=== PATIENT | male | born 1965 | race Caucasian/White ===

== ENCOUNTER 2025-01-24 06:34 | Day surgery (SDC) | payer OTHER, MEDICARE ==
[~2025-01-24] VITALS: Ht 175.3 cm; Wt 77.2 kg
[2025-01-24] MEDS ORDERED: RINGERS SOLUTION,LACTATED 1,000 ML IV ONE (07:20)
[2025-01-24 07:23] LABS: PLATELET COUNT (AUTO) 192 K/uL (150-450); RED BLOOD CELL COUNT(AUTO) 4.49 MIL/uL (4.50-5.90); RED CELL DISTRIBUTION WIDTH 14.3 % (11.5-14.5); WHITE BLOOD COUNT (AUTO) 4.7 K/uL (4.5-11.0)
[2025-01-24 07:36] LABS: CALCIUM, TOTAL 8.2 mg/dL (8.8-10.5); CREATININE 0.79 mg/dL (0.60-1.30); GLOMERULAR FILTR. RATE CALC > 60 mL/min (>60); GLUCOSE,RANDOM 96 mg/dL (70-110); SODIUM SERUM 138 mmol/L (136-145); UREA NITROGEN, BLOOD 10 mg/dL (7-18)
[2025-01-24 07:41] LABS: ASPARTATE AMINOTRANSFERASE 12 U/L (15-37); TOTAL PROTEIN, SERUM 7.3 g/dL (6.4-8.2)
[2025-01-24] MEDS ORDERED: AMPICILLIN SODIUM 2 GM/NS 100 ML IV ONE (08:11)
[2025-01-24] MEDS ORDERED: SUGAMMADEX SODIUM 200 MG/2 ML VIAL IVP ONE (08:40)
[2025-01-24] MEDS ORDERED: PROPOFOL 1% 20 ML VIAL IVP ONE (08:40)
[2025-01-24] MEDS ORDERED: GLYCOPYRROLATE 0.2 MG/ML VIAL ONE (08:40)
[2025-01-24] MEDS ORDERED: ONDANSETRON HCL 4 MG/2 ML VIAL ONE (08:40)
[2025-01-24] MEDS ORDERED: ROCURONIUM BROMIDE 10 MG/ML 5 ML VIAL ONE (08:40)
[2025-01-24] MEDS: RINGERS SOLUTION,LACTATED 1,000 ML IV ONE (10:45)
[2025-01-24] MEDS ORDERED: LORA0.5T20 PO (11:00)
[2025-01-24] MEDS ORDERED: LITH600C5 PO (11:00)
[2025-01-24] MEDS ORDERED: RISP-32 PO (11:00)
[2025-01-24] MEDS ORDERED: BENZ-247 PO (11:00)
[2025-01-24] MEDS ORDERED: QUET200T PO (11:00)
[2025-01-24] MEDS ORDERED: HALO10TA21 PO (11:00)
[2025-01-24] MEDS ORDERED: DIVA-153 PO (11:00)
== END 2025-01-24 14:00 | disposition home or self-care (01) ==
LOC: SURGERY 06:34
PROVIDERS: ATTEND Dentist General Practice
DX: K05.20 Aggressive periodontitis, unspecified (principal); K02.9 Dental caries, unspecified; I45.10 Unspecified right bundle-branch block; I51.7 Cardiomegaly; J45.909 Unspecified asthma, uncomplicated
CPT/HCPCS: 41899; 71045; 80053; 85025; 85610; 85730; 36415; 93005; J0290; J2704; J3490 ×3; J2405; J7120